=== PATIENT | female | born 2000 | race Two or more races ===

== ENCOUNTER 2018-06-23 22:58 | Emergency (ER) | payer OTHER ==
[~2018-06-23] VITALS: Ht 157.5 cm; Wt 54.0 kg
[2018-06-24] MEDS ORDERED: CELEBREX100 MG PO (00:07)
== END 2018-06-24 00:13 | disposition home or self-care (01) ==
LOC: ER 22:58
DX: R07.89 Other chest pain (principal); M94.0 Chondrocostal junction syndrome [Tietze]